=== PATIENT | male | born 1960 | race Caucasian/White ===

== ENCOUNTER 2019-04-16 07:28 | Outpatient (CLI) | payer OTHER ==
[~2019-04-16 07:28] MED LIST: PERCOCET 5/3251 TAB PO; POLY119PG PO; ULTRAM50 MG PO
== END 2019-04-16 11:43 | disposition home or self-care (01) ==
LOC: MRI 07:28
DX: K72.00 Acute and subacute hepatic failure without coma (principal); R10.84 Generalized abdominal pain
CPT/HCPCS: 74181

== ENCOUNTER → 2019-04-16 08:37 | Outpatient (CLI) | payer OTHER | END | disposition home or self-care (01) | LOC: LAB 08:37 | DX: R10.84 Generalized abdominal pain (principal) ==

== ENCOUNTER 2019-10-19 09:26 | Outpatient (CLI) | payer OTHER | END 2019-10-19 10:00 | disposition home or self-care (01) | LOC: TOM 09:26 | DX: R10.84 Generalized abdominal pain (principal); K40.20 Bilateral inguinal hernia, without obstruction or gangrene, not specified as recurrent; K43.2 Incisional hernia without obstruction or gangrene ==

== ENCOUNTER 2020-04-30 05:55 | Day surgery (SDC) | payer OTHER ==
[~2020-04-30 05:55] MED LIST changes: +APPLE CIDER VI300 MG PO; +COQ-1030 MG PO; +MAGNESIUM CITR100 MG PO; +MULTIVITAMINS1 EAC9 PO; +NEPHRONEX-SL T1 EACH PO; +OMEGA 3 1,0001 EACH PO; +SAW PALMETTO160 MG PO; +ZINC PO; +[UNRECOGNIZED DRUG - OTHER] PO
[2020-04-30] MEDS ORDERED: PERCOCET 5-3251 EACH PO (15:30)
[2020-04-30] MEDS ORDERED: COLACE100 MG PO (15:31)
[2020-04-30] MEDS ORDERED: NEURONTIN600 M1 PO (15:31)
== END 2020-04-30 19:10 | disposition home or self-care (01) ==
LOC: CIR.AMB 05:55
PROVIDERS: ATTEND Surgery
DX: K40.20 Bilateral inguinal hernia, without obstruction or gangrene, not specified as recurrent (principal); Z20.828 Contact with and (suspected) exposure to other viral communicable diseases

== ENCOUNTER 2021-04-22 06:39 | Day surgery (SDC) | payer OTHER ==
[~2021-04-22 06:39] MED LIST changes: +COLACE100 MG PO; +NEURONTIN600 M1 PO; +PERCOCET 5-3251 EACH PO
[2021-04-22] MEDS ORDERED: NEURONTIN600 M1 PO (12:33)
[2021-04-22] MEDS ORDERED: PERCOCET 5-3251 EACH PO (12:33)
[2021-04-22] MEDS ORDERED: COLACE100 MG PO (12:34)
== END 2021-04-22 16:50 | disposition home or self-care (01) ==
LOC: CIR.AMB 06:39
PROVIDERS: ATTEND Surgery
DX: K40.91 Unilateral inguinal hernia, without obstruction or gangrene, recurrent (principal); Z20.822 Contact with and (suspected) exposure to COVID-19